=== PATIENT | male | born 1975 | race Caucasian/White ===

== ENCOUNTER 2024-01-26 12:16 | Emergency (ER) | payer OTHER ==
[~2024-01-26] VITALS: Ht 182.9 cm; Wt 105.2 kg
[2024-01-26] MEDS ORDERED: AMLO-213 PO (13:24)
[2024-01-26] MEDS: AMLODIPINE BESYLATE 5 MG TABLET PO ONE (13:29)
[2024-01-26] MEDS ORDERED: AMLODIPINE BESYLATE 10 MG TABLET ONE (13:30)
[2024-01-26 13:35] VITALS: BP 146/112; TEMP 98.1; O2SAT 99
== END 2024-01-26 13:35 | disposition home or self-care (01) ==
LOC: ER 12:43
DX: I10 Essential (primary) hypertension (principal); Z76.0 Encounter for issue of repeat prescription